=== PATIENT | female | born 1945 | race Caucasian/White ===

== ENCOUNTER 2024-01-31 20:06 | Outpatient (CLI) | payer MEDICARE, OTHER, SELFPAY | END 2024-01-31 20:07 | disposition home or self-care (01) | PROVIDERS: PCP Family Medicine; Visit Provider Internal Medicine | DX: G47.33 Obstructive sleep apnea (adult) (pediatric) (principal); G47.31 Primary central sleep apnea | CPT/HCPCS: 95811 ==

== ENCOUNTER 2025-02-01 09:00 | Outpatient (RCR) | payer MEDICARE, OTHER, SELFPAY | END 2025-04-26 14:40 | disposition home or self-care (01) | PROVIDERS: PCP Family Medicine; Visit Provider Family Medicine | DX: M54.50 Low back pain, unspecified (principal); G89.29 Other chronic pain; Z51.89 Encounter for other specified aftercare | CPT/HCPCS: 97110; 97140; 97161 ==

== ENCOUNTER 2025-03-24 07:21 | Outpatient (CLI) | payer MEDICARE, OTHER, SELFPAY ==
--- OUTSIDE RECORDS SUMMARY | 2025-03-24 08:07 | XMS_ITS | CCD ---
Author Name Interface, [id number] lity Address [place] [address] [facility] Address [place]. [place] [address] Care Team Providers Care Backshoe Person Name Role Phone Interface, [id number] Unavailable Unavail able Reason for Visit Social History
--- OUTSIDE RECORDS SUMMARY | 2025-03-24 08:07 | XMS_ITS | Clinical Summary ---
Author Organization [facility] Address [address] [place] [address] Care Team Providers Care Machine Tracer Name Role Phone Darby Romero MD Unavailable [phone] Alexandra Sams DO Primary Care Provider [phone] [facility] RN Unavailable Madeleine Arredondo MD Unavailable [phone] Luna Duggan NP Unavailable Armando Victor Unavailable [phone] Allergies Active Allergy Reactions Criticality Noted Date Comments Codeine Itching 06/26/2006 Hydrocodone Bitartrate Itching,Rash Low 05/19/2014 Warfarin Rash 05/22/2023 Medications latanoprost (XALATAN) 0.005 % ophthalmic solution 02/24/20 23 Active ascorbic acid, vitamin C, (Vitamin C) 500 mg tablet Take 500 mg by mouth once daily. Active calcium carbonate (CALTRATE) 600 mg calcium (1,500 mg) tabletIndications :Osteopenia of multiple sites Take 2 Tablets (1,200 mg) by mouth once daily with a meal. 2 Tablet 07/07/20 23 Active cholecalciferol (Vitamin D-3) 2,000 unit capsuleIndication s:Osteopenia of multiple sites Take 1 Capsule (2,000 units) by mouth once daily. 0 07/07/20 23 Active multivitamin (MVI) tabletIndications :Medication management Take 1 Tablet by mouth once daily. 0 07/07/20 23 Active CPAPIndications:O SA (obstructive sleep apnea) Resmed CPAP machine for home use at pressure 13 cmw, CPAP mask- mask of choice, fit to comfort one per 3 months; cushions 1 per month 1 Each 03/07/20 24 Active amoxicillin (AMOXIL) 500 mg tabletIndications :Need for prophylactic antibiotic TAKE 4 TABLETS(200 0 MG) BY MOUTH 1 TIME FOR 1 DOSE 4 Tablet 03/25/20 24 Active fluticasone (50 mcg per actuation) nasal solution (FLONASE)Indicati ons:PND (post-nasal drip) Inhale 2 Sprays into affected nostril(s) once daily. 16 g 5 05/10/20 24 Active Magnesium 200 mg tab Take 600 mg by mouth once daily. Active rosuvastatin (CRESTOR) 20 mg tabletIndications :Type 2 diabetes mellitus with retinopathy of both eyes, without long-term current use of insulin, macular edema presence unspecified, unspecified retinopathy severity (HC) Take 1 Tablet (20 mg) by mouth at bedtime. 90 Tablet 3 06/01/20 24 Active celecoxib (CELEBREX) 100 mg capsuleIndication s:Osteoarthritis of multiple joints, unspecified osteoarthritis type Take 1 Capsule (100 mg) by mouth two times daily with meals. 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 90 Tablet 3 12/24/19 25 Active zolpidem 5 mg tabletIndications :Primary insomnia Take 1 Tablet (5 mg) by mouth at bedtime if needed for Sleep. 15 Tablet 12/24/19 25 Active letrozole 2.5 mg tabletIndications :Malignant neoplasm of right female breast, unspecified estrogen receptor status, unspecified site of breast (HC) Take 1 Tablet (2.5 mg) by mouth once daily. 90 Tablet 3 01/07/20 25 Active glimepiride 4 mg tabletIndications :Type 2 diabetes mellitus with retinopathy of both eyes, without long-term current use of insulin, macular edema presence unspecified, unspecified retinopathy severity (HC) TAKE 1 TABLET(4 MG) BY MOUTH DAILY WITH A MEAL 90 Tablet 01/21/20 25 Active pantoprazole 40 mg delayed-release tabletIndications :Chronic GERD TAKE 1 TABLET(40 MG) BY MOUTH DAILY BEFORE A MEAL 90 Tablet 2 02/03/20 25 Active metFORMIN 1,000 mg tabletIndications :Type 2 diabetes mellitus with retinopathy of both eyes, without long-term current use of insulin, macular edema presence unspecified, unspecified retinopathy severity (HC) Take 1 Tablet (1,000 mg) by mouth two times daily with meals. 120 Tablet 02/22/20 25 Active metoprolol succinate 50 mg sustained-release tabletIndications :Cardiomyopathy, unspecified type (HC) Take 1 Tablet (50 mg) by mouth once daily in the morning. 90 Tablet 02/22/20 25 Active escitalopram oxalate 20 mg tabletIndications :Generalized anxiety disorder Take 1 Tablet (20 mg) by mouth once daily in the morning. 90 Tablet 02/22/20 25 Active montelukast 10 mg tabletIndications :Seasonal allergies TAKE 1 TABLET(10 MG) BY MOUTH AT BEDTIME 90 Tablet 2 02/22/20 25 Active spironolactone 25 mg tabletIndications :Cardiomyopathy, unspecified type (HC) Take 1 Tablet (25 mg) by mouth once daily in the morning. 90 Tablet 02/22/20 25 Active traMADoL 50 mg tabletIndications :Chronic bilateral low back pain without sciatica Use every 8 hours as needed for severe pain, no more than 2 tablets in one day 30 Tablet 03/07/20 25 Active busPIRone 10 mg tabletIndications :Generalized anxiety disorder TAKE 1 TABLET(10 MG) BY MOUTH THREE TIMES DAILY 270 Tablet 1 03/22/20 25 Active busPIRone (BUSPAR) 10 mg tabletIndications :Generalized anxiety disorder Take 1 Tablet (10 mg) by mouth three times daily. 270 Tablet 3 03/03/20 24 025 Discontinued traMADoL 50 mg tabletIndications :Chronic bilateral low back pain without sciatica Daily as needed for severe pain 15 Tablet 12/24/19 25 025 Discontinued(R eorder (E-cancel not sent)) Active Problems Problem Noted Date Diagnosed Date Other specified disorders of bone density and structure, unspecified site 06/28/2024 Osteopenia of multiple sites 12/21/2023 Overview (12/21/2023): Takes calcium, Vitamin D Due for repeat DEXA Jul 2024 Chronic systolic heart failure 12/02/2023 Type 2 diabetes mellitus wit h proliferative retinopathy without macular edema, without long-term current use of insulin, unspecified laterality 12/02/2023 Major depressive disorder, recurrent, moderate 0 12/02/2023 Malignant neoplasm of right female breast 2022 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, without long-term current use of insulin 05/22/2023 Hx of sinus bradycardia 05/22/2023 Assessment & Plan (05/22/2023 4:51 PM CDT): Pacer and ICD placed Cardiomyopathy 05/22/2023 Chronic GERD 05/22/2023 Seasonal allergies 05/22/2023 Generalized anxiety disorder 05/22/2023 Psychophysiological insomnia 05/22/2023 Nonrheumatic aortic valve stenosis 05/22/2023 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 05/22/2023 ICD (implantable cardioverter-defibrillator) in place 05/22/2023 Cardiac resynchronization th erapy pacemaker (RADIO OPERATOR GROUND-P) in place 05/22/2023 Depression, recurrent 05/22/2023 Encounters Date Type Department Care Team Description 03/20/2025 Refill [facility] [address] [place] [address] Alexandra Sams Salome, DO Refill Request (Buspirone) 03/07/2025 11:00 AM CDT Office Visit [facility] [address] [place] [address] Alexandra Sams Salome, DO Back Pain (6wk PT no improvement, CT completed scheduled for injections.) 03/07/2025 Travel 03/03/2025 Transcribe Orders [facility] [address] [place] [address] Pradip Titus MD 02/20/2025 Refill [facility] [address] [place] [address] Sir Samsi Salome, DO Refill Request (Metformin, Metoprolol Succinate, Escitalopram Oxalate, Montelukast, Spironolactone) 02/15/2025 Telephone [facility] [address] [place] [address] Shaqra, Alexandra Salome, DO Questions (imaginings) 02/03/2025 Telephone [facility] [address] [place] [address] Estuardoqra, Alexandra Salome, DO FYI 01/31/2025 Refill [facility] [address] [place] [address] Estuardoqra Alexandra Salome, DO Refill Request (Pantoprazole) 01/19/2025 Refill [facility] [address] [place] [address] Estuardoqra, Alexandra Salome, DO Refill Request (Glimepiride) 01/10/2025 Telephone [facility] [address] [place] [address] Luna Duggan, FIBERGLASS BOAT MAKER Appointment 01/06/2025 9:15 AM CDT Office Visit [facility] [address] [place] [phone] Luna Duggan, FIBERGLASS BOAT MAKER Follow Up 01/06/2025 8:40 AM CDT - 01/06/2025 11:59 PM CDT Hospital Encounter [facility] [address] [place] [address] Other specified disorders of bone density and structure, unspecified site (Primary Dx); Malignant neoplasm of right breast in female, estrogen receptor positive, unspecified site of breast (HC) 01/06/2025 Telephone [facility] [address] [place] [address] Estuardoqra Alexandra Salome, DO Medication Management (SITagliptin phosphate 50 mg tablet) 01/06/2025 Travel 01/03/2025 Hospital/[facility] Telephone Encounter [address] [address] Elana Narayanan RN Pre Procedure 12/23/2024 10:35 AM CDT Office Visit [facility] [address] [place] [address] Estuardoqra, Alexandra Salome, DO Diabetes (3 month check ); Back Pain (Level 3 pain, wanting medication advise) 12/23/2024 Travel from Last 3 Months Immunizations Immunization Administration Dates Next Due COVID-19 VACCINE COMIRNATY (PFIZER-BIONTECH 30MCG/0.3ML) 12YO+ PFS 07/09/2023 COVID-19 VACCINE SPIKEVAX (M ODERNA 50MCG/0.5ML) 12YO+ PFS 08/12/2024 COVID-19 vaccine (Shake-Bio NTech 30mcg/0.3mL) 12YO+ BIVALENT PF, MDV 09/05/2022 COVID-19 vaccine (Pfizer-Bio NTech 30mcg/0.3mL) 12YO+ DARIO-SUCROSE PF, MDV 09/12/2022 COVID-19 vaccine (Shake-Bio NTech 30mcg/0.3mL) PF, MDV 04/04/2022,01/08/2021,12/18/2020 Hepatitis B (Adult) 05/24/2020,11/17/2019,2018 Influenza Virus, Unspecified 06/14/2022, 07/05/2016,07/18/2013,07/16,06/05/2011 Influenza, High-dose Inactivated 06/27/2021,11/2016,07/18/2015 Influenza, IIV3 (Age >=3 years) 08/21/20 06,09/23/2005,09/20/2004,09/07,09/26/2002 Influenza, Inactivated AIIV4 (Age 65+ Years) Preserv Free 07/07/2023 Influenza, Inactivated IIV3 (Age 65+ Years) Preserv Free 08/12/2024 Pneumococcal Poly,23-Valent (Pneumovax) 10/05/2009 Pneumococcal conj 13-Valent (Prevnar 13) 07/02/2016 RSV, Recombinant ADJ Reconst ituted (Arexvy 120MCG/0.5mL) 07/09/2023 TD, UNSPECIFIED 10/05/2009 Td (Age >=7 Years) 09/12/2022 Tdap 06/23/2006 Zoster (Shingrix-RZV, recombinant) 08/02/2019, Zoster (Zostavax-ZVL, live) 10/05/2009 Family History Medical History Relation Name Comments Stroke Father Stroke Mother Cancer Sister Neuroendocrine Diabetes Sister Cancer-breast No Family History Relation Name Status Comments Father Mother Sister Social History Tobacco Use Types Packs/Day Years Used Date Smoking Tobacco: Never Smokeless Tobacco: Never Tobacco Cessation:Counseling Given: Yes Alcohol Use Standard Drinks/Week Comments Yes 0 (1 standard drink = 0.6 oz pure alcohol) One drink every couple of weeks PHQ-2 Answer Date Recorded PHQ-2 TOTAL SCORE 0 03/03/2024 Social Connections Answer Date Recorded Do you often feel lonely or isolated from those around you? 0 05/30/2024 Financial Resource Strain Answer Date R ecorded Difficulty of Paying Living Expenses 3 05/30/2024 Difficulty of Paying Living Expenses Not on file 05/30/2024 Food Insecurity Answer Date Recorded Do you worry your food will run out before you are able to buy more? 1 05/30/2024 Transportation Needs Answer Date Record ed Does lack of transportation keep you from medica l appointments? 1 05/30/2024 Does lack of transportation keep you from work, meetings or getting things that you need? 1 05/30/2024 Housing Stability Answer Date Recorded What is your housing situation today? 1 05/30/2024 Utilities Answer Date Recorded Do you have trouble paying f or utilities (for example, heat, electricity, water, phone)? 1 05/30/2024 Comments No Sex and Gender Information Value Date Recorded Sex Assigned at Not on file Legal Sex Female 9:48 AM CDT Gender Identity Not on file Sexual Orientation Not on file Obstetrics History Last Filed Vital Signs Vital Sign Reading Time Taken Comments Blood Pressure 102/61 03/07/2025 11:14 AM CDT Pulse 74 03/07/2025 11:14 AM CDT Temperature 35.9 C (96.7 F) 01/06/2025 9:33 AM CDT Respiratory Rate 18 01/06/2025 9:33 AM CDT Oxygen Saturation 98% 03/07/2025 11:14 AM CDT Inhaled Oxygen Concentration - - Weight 71 kg (156 lb 8 oz) 03/07/2025 11:14 AM C DT Height 160 cm (5' 2.99) 09/21/2024 1:04 PM COMPUTER SYSTEMS ENGINEER Body Mass Index 27.73 09/21/2024 1:04 PM COMPUTER SYSTEMS ENGINEER Plan of Treatment Upcoming Encounters Date Type Department Care Team (Late st Contact Info) Description 03/29/2025 12:30 PM CDT Office Visit [facility] [address] [place] [address] LatrellSirdougie Mcmahon, DO [address] [place] [address] 05/30/2025 3:00 PM CDT Office Visit [facility] [address] [facility] [place] [phone] Nino Combs MD [address] [facility] [address] [place] [address] 06/26/2025 10:00 AM CDT Ancillary Procedure [facility] [address] [place] [address] 07/14/2025 10:15 AM CDT Appointment [facility] [address] [place] [address] 07/14/2025 11:15 AM CDT Office Visit [facility] [address] [place] [phone] Luna Duggan, FIBERGLASS BOAT MAKER [address] [place] [address] 07/14/2025 11:45 AM CDT Appointment [facility] [address] [place] [address] Health Maintenance Due Date Last Done Comments Medicare Wellness for age 65+ 12/21/2024 12/21/2023 COVID-19 vaccine series (7 - Pfizer risk 2023- season) 2025 08/12/2024, 07/09/2023, 09/12/2022, Additional history exists Depression screening for age 12+ 03/03/2025 03/03/2024, 12/25/2023, 12/21/2023, Additional history exists BMI (ht and wt on same day) for age 18+ 09/21/2025 09/21/2024, 06/14/2024, 03/07/2024, Additional history exists Tetanus booster 09/12/2032 09/12/2022, 10/2009, 06/23/2006 Tdap Completed 06/23/2006 Pneumococcal series for age 50+ Completed 6, 10/05/2009 Zoster (shingles) series for age 50+ Completed 08/02/2019, 06/03/2019, 10/05/2009 Hepatitis B series for 19+ Completed 05/24, 11/17/2019, 06/24/2019 RSV vaccine for adults or Completed 07/09/2023 DEXA/DXA scan for age 65+ Completed 2023, [facility]05[facility]20[facility] Influenza Vaccine Completed 08/12/2024, , 06/14/2022, Additional history exists Medical Devices Implanted Type Area Battery Plate Assembler Device Identifier Shelf Expiration Date Model / Serial / Lot Lens Intraocular 18.5 Wf Diopter [id number] - [id number] Implanted:Qty: 1 on 06/29/2006 at [facility] Right: Eye [employer] [id number]. [id number]# / [id number] / Procedures Procedure Name Priority Date/Time Associated Diagnosis Comments AMB EPIDURAL STEROID INJECTION Routine 03/24/2025 7:57 AM CDT Low back pain CREATININE Today 01/06/2025 8:49 AM CDT Malignant neoplasm of right breast in female, estrogen receptor positive, unspecified site of breast (HC) Other specified disorders of bone density and structure, unspecified site CALCIUM Today 01/06/2025 8:49 AM CDT Malignant neoplasm of right breast in female, estrogen receptor positive, unspecified site of breast (HC) Other specified disorders of bone density and structure, unspecified site HEMOGLOBIN A1C MONITORING (POCT) Routine 12/23/2024 10:28 AM CDT 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, without long-term current use of insulin, unspecified laterality (HC) Type 2 diabetes mellitus with retinopathy of both eyes, without long-term current use of insulin, macular edema presence unspecified, unspecified retinopathy severity (HC) Type 2 diabetes mellitus without complication, without long-term current use of insulin (HC) XR DXA BONE DENSITY PERIPHERAL Routine 06/13/2024 10:41 AM CDT Malignant neoplasm of right female breast, unspecified estrogen receptor status, unspecified site of breast (HC) Osteopenia, unspecified location Aromatase inhibitor use from Last 3 Months or Most Recently Relevant to Health Maintenance Results * (ABNORMAL) CREATININE (01/06/2025 8:49 AM CDT) [facility] eGFR 57(L) >90 mL/min/1.7 3m2 01/06/2025 9:07 AM CDT [facility] Comment:As of 2021, eG FR is calculated by the CKD-EPI creatinine equation without race adjustment. eGFR can be influenced by muscle mass, exercise, and diet. The reported eGFR is an estimation only and is only applicable if the renal function is stable. CREATININE 1.00(H) 0.50 - 0.90 mg/dL 01/06/2025 9:07 AM CDT [facility] Blood BLOOD SPECIMEN / Unknown Venipuncture / Unknown 01/06/2025 8:49 AM CDT 01/06/2025 8:49 AM CDT us Madeleine Arredondo MD CHEMISTRY Final Resu lt [facility] [address] [place] [address] * CALCIUM (01/06/2025 8:49 AM CDT) Pathologist [facility] CALCIUM 9.9 8.8 - 10.4 mg/dL 01/06/2025 9:07 AM CDT [facility] Comment: Reference ranges for this test were updated on 08/09/2024 to reflect our healthy population more accurately. Reference range changes are not retroactively applied to results, but previous results using the same methodology can be interpreted in the context of the new reference range. Blood BLOOD SPECIMEN / Unknown Venipuncture / Unknown 01/06/2025 8:49 AM CDT 01/06/2025 8:49 AM CDT Madeleine Arredondo MD CHEMISTRY Final Resu lt Performing Organization Address City/[facility]/ZIP Co de Phone Number [facility] [address] [place] [address] * (ABNORMAL) POCT Hemoglobin A1C Monitoring (12/23/2024 10:28 AM CDT) POC HEMOGLOBIN A1C 8.5(H) <6.0 % OF TOTAL HGB [facility] Comment: Any point of care results exhibiting inconsistency with the patient's clinical status should be repeated using a different testing method. Blood BLOOD SPECIMEN / Unknown 12/23/2024 10:28 AM CDT 12/23/2024 10:28 AM CDT Alexandra Sams DO CHEMISTRY Final Result Performing Organization Address [facility] Co de Phone Number [facility] [address] [place] [address], [facility] [address] [place] [address] * (ABNORMAL) XR DXA BONE DENSITY PERIPHERAL (06/13/2024 10:41 AM CDT) Anatomical Region Laterality Modality ARMS Other Impressions 06/14/2024 12:39 PM CDT Osteopenia. RECOMMENDATIONS: The National Osteoporosis Foundation recommends pharmacologic treatment for patients with T-scores of -2.5 or less, patients with prior history of fragility fractures, or patients with 10-year probability of greater than 3% at hips or greater than 20% of suffering major osteoporotic fractures. Recommend continued optimization of calcium and vitamin D intake through dietary means and/or supplementation and regular exercise. Repeat scan recommended in 3-5 years. Mihaela Mora PA-C [facility] 06/14/2024 Narrative 06/14/2024 12:39 PM CDT For Patients: Results are automatically released to your iLive (Sky[employer]) account once available, in compliance with federal regulations. This means that you may see your results before your provider has had a chance to review them. Please allow 2-3 business days for your provider to comment on the results. XR DXA Bone Mineral Density (BMD) EXAM LOCATION: [address] [address] PATIENT NAME: Lary France DATE OF : 1945 EXAM DATE: 06/13/2024 REQUESTING PROVIDER: Luna Duggan NP GENDER AT : female HEIGHT: 5' 2.99 (03/07/2024) WEIGHT: 157 lb 14.4 oz (06/02/2024) MENOPAUSAL STATUS: Postmenopausal RACE/ETHNICITY: Patient Declined White RISK FACTORS: Aromatase Inhibitors (Arimidex, etc.), Cancer Treatment, Diabetes Type 1, Family History of Osteoporosis, and White Race CURRENT MEDICATION FOR BONE LOSS: NONE INDICATION: Aromatase Inhibitor Use COMPARISON DATE(S): None DXA scans are compared to prior studies for a patient only when the two (or more) studies were performed on the same scanner. It is not possible to compare data generated on one scanner to data from another because there are not standards in DXA equipment. This applies even if the two scanners are made by the same device engineer. PROCEDURE: Dual-energy x-ray absorptiometry performed with routine technique. Reporting is completed in the form of a T-score. The T-score represents the standard deviation from peak bone mass based on young healthy adult. A Z-score is used for diagnosis in premenopausal women, and for men under the age of 50. FINDINGS: RESULT LUMBAR SPINE L1-L2(L3&L4) BMD: 1.896 g/cm2 T-Score: + 5.9 Z-Score: + 7.6 Change from prior: None RESULT FOREARM Right Forearm distal radius BMD: 0.729 g/cm2 T-Score: - 1.7 Z-Score: + 1.1 Change from prior: None RESULT FOREARM Left Forearm distal radius BMD: 0.771 g/cm2 T-Score: - 1.2 Z-Score: + 1.5 Change from prior: None WHO criteria: Normal: T-score at or above -1 SD Osteopenia: T-score between -1.1 and -2.4 SD Osteoporosis: T-score at or below -2.5 SD Luna Duggan NP DEXA Final Result from Last 3 Months or Most Recently Relevant to Health Maintenance Insurance MEDICARE PB ONLY [facility] MEDICARE PART B HB ONLY MEDICARE PART A HB ONLY Advance Directives * Full Code (Latest Code Status on File) Date Activated Date Inactivated Comments 10/14/2006 6:21 AM 10/14/2006 11:54 AM * Full Code Date Activated Date Inactivated Comments 09/03/2006 9:44 AM 09/03/2006 2:05 PM * Full Code Date Activated Date Inactivated Comments 09/03/2006 8:42 AM 09/03/2006 9:44 AM * Full Code Date Activated Date Inactivated Comments 06/29/2006 6:33 AM 06/29/2006 11:57 AM Care Teams Machine Tracer Relationship Specialty Start Date End Date Alexandra Sams DO [address] [place] [address] PCP - General Family Practice 05/22/23 Darby Romero MD [address] [place] [address] 04/02/23 Ninoska Nguyen RN [address] [place] [address] Nurse Navigator - Oncology Registered Nurse 05/27/23 Madeleine Arredondo MD [address] [place] [address] Medical Oncologist Oncology 06/23/23 Luna Duggan, FIBERGLASS BOAT MAKER [address] [place] [address] Nurse Practitioner Oncology 06/23/23 [place], Armando Botello LGSW [address] [place] [address] Edge Cutting Machine Operator Oncology 06/23/23
--- OUTSIDE RECORDS SUMMARY | 2025-03-25 00:21 | XMS_ITS | CCD ---
Author Name Interface, [id number] lity Address [place] [address] [facility] On[facility] Address More breakthroughs[place] [address] Care Team Providers Care Caddy/Caddie Supervisor Name Role Phone Interface, [id number] Unavailable Unavail able Reason for Visit Social History
--- OUTSIDE RECORDS SUMMARY | 2025-03-25 00:21 | XMS_ITS | CCD ---
Author Name Interface, [id number] lity Address [place] [address] [facility] On[facility] Address [place] [address] Care Team Providers Care Cuprous Chloride Helper Name Role Phone Interface, [id number] Unavailable Unavail able Reason for Visit Social History
== END 2025-03-24 07:22 | disposition home or self-care (01) ==
LOC: INJ CL 07:23
PROVIDERS: PCP Family Medicine; Visit Provider Family Medicine
DX: M54.16 Radiculopathy, lumbar region (principal); M51.369 Other intervertebral disc degeneration, lumbar region without mention of lumbar back pain or lower extremity pain
CPT/HCPCS: 64483; J1100; Q9966

== ENCOUNTER 2025-05-02 10:48 | Outpatient (CLI) | payer MEDICARE, OTHER, SELFPAY | END 2025-05-02 10:49 | disposition home or self-care (01) | LOC: INJ CL 10:48 | PROVIDERS: PCP Family Medicine; Visit Provider Family Medicine | DX: M54.16 Radiculopathy, lumbar region (principal); M51.369 Other intervertebral disc degeneration, lumbar region without mention of lumbar back pain or lower extremity pain | CPT/HCPCS: 64483; J1100; Q9966 ==

== ENCOUNTER 2025-06-20 09:59 | Outpatient (CLI) | payer MEDICARE, OTHER, SELFPAY | END 2025-06-20 10:00 | disposition home or self-care (01) | LOC: INJ CL 10:00 | PROVIDERS: PCP Family Medicine; Visit Provider Family Medicine | DX: M54.16 Radiculopathy, lumbar region (principal); M51.369 Other intervertebral disc degeneration, lumbar region without mention of lumbar back pain or lower extremity pain | CPT/HCPCS: 64483; J1100; Q9966 ==

== ENCOUNTER 2025-07-20 13:56 | Emergency (ER) | payer MEDICARE, OTHER, SELFPAY ==
[2025-07-20] VITALS (27 sets, daily range): BP systolic 87–133; BP diastolic 43–77; PULSE 69–79; RESP 16; TEMP 36.4; O2SAT 90–98
--- OUTSIDE RECORDS SUMMARY | 2025-07-20 13:59 | XMS_ITS | CCD ---
Author Name Interface, [address] Address More breakthroughs. More victories. [place] [id number] [facility] Address More breakthrough[place] [address] Reason for Visit Social History Date Name Value 06/18/2022 Sex Female
--- OUTSIDE RECORDS SUMMARY | 2025-07-20 14:00 | XMS_ITS | Clinical Summary ---
Author Organization [facility] Address [address] [place] [address] Care Team Providers Care Risk Management Director Name Role Phone Darby Romero MD Unavailable [phone] Alexandra Sams DO Primary Care Provider [phone] [facility] Unavailable Madeleine Arredondo MD Unavailable [phone] Luna Duggan OPTICAL ENGINEER Unavailable Armando Victor Unavailable Unavailable Ashley Knox PharmD Unavailable [phone] Allergies Active Allergy Reactions Criticality Noted Date Comments Codeine Itching 06/26/2006 Hydrocodone Bitartrate Itching,Rash Low 05/19/2014 Warfarin Rash 05/22/2023 Medications latanoprost (XALATAN) 0.005 % ophthalmic solution 023 Active ascorbic acid, vitamin C, (Vitamin C) 500 mg tablet Take 500 mg by mouth once daily. Active calcium carbonate (CALTRATE) 600 mg calcium (1,500 mg) tabletIndication s:Osteopenia of multiple sites Take 2 Tablets (1,200 mg) by mouth once daily with a meal. 2 Tablet 023 Active cholecalciferol (Vitamin D-3) 2,000 unit capsuleIndicatio ns:Osteopenia of multiple sites Take 1 Capsule (2,000 units) by mouth once daily. 0 023 Active multivitamin (MVI) tabletIndication s:Medication management Take 1 Tablet by mouth once daily. 0 023 Active CPAPIndications: MARLYS (obstructive sleep apnea) Resmed CPAP machine for home use at pressure 13 cmw, CPAP mask- mask of choice, fit to comfort one per 3 months; cushions 1 per month 1 Each 024 Active fluticasone (50 mcg per actuation) nasal solution (FLONASE)Indicat ions:PND (post-nasal drip) Inhale 2 Sprays into affected nostril(s) once daily. 16 g 5 024 Active Magnesium 200 mg tab Take 600 mg by mouth once daily. Active celecoxib (CELEBREX) 100 mg capsuleIndicatio ns:Osteoarthriti s of multiple joints, unspecified osteoarthritis type Take 1 Capsule (100 mg) by mouth two times daily with meals. 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 90 Tablet 3 025 Active letrozole 2.5 mg tabletIndication s:Malignant neoplasm of right female breast, unspecified estrogen receptor status, unspecified site of breast (HC) Take 1 Tablet (2.5 mg) by mouth once daily. 90 Tablet 3 025 Active pantoprazole 40 mg delayed-release tabletIndication s:Chronic GERD TAKE 1 TABLET(40 MG) BY MOUTH DAILY BEFORE A MEAL 90 Tablet 2 025 Active montelukast 10 mg tabletIndication s:Seasonal allergies TAKE 1 TABLET(10 MG) BY MOUTH AT BEDTIME 90 Tablet 2 025 Active busPIRone 10 mg tabletIndication s:Generalized anxiety disorder TAKE 1 TABLET(10 MG) BY MOUTH THREE TIMES DAILY 270 Tablet 1 025 Active metFORMIN 1,000 mg tabletIndication s:Type 2 diabetes mellitus with retinopathy of both eyes, without long-term current use of insulin, macular edema presence unspecified, unspecified retinopathy severity (HC) Take 1 Tablet (1,000 mg) by mouth two times daily with meals. 180 Tablet 3 025 Active rosuvastatin 20 mg tabletIndication s:Type 2 diabetes mellitus with retinopathy of both eyes, without long-term current use of insulin, macular edema presence unspecified, unspecified retinopathy severity (HC) Take 1 Tablet (20 mg) by mouth at bedtime. 90 Tablet 3 Active escitalopram oxalate 20 mg tabletIndication s:Generalized anxiety disorder Take 1 Tablet (20 mg) by mouth once daily in the morning. 90 Tablet 3 Active spironolactone 25 mg tabletIndication s:Cardiomyopathy , unspecified type (HC) Take 1 Tablet (25 mg) by mouth once daily in the morning. 90 Tablet 3 Active metoprolol succinate 50 mg sustained-releas e tabletIndication s:Cardiomyopathy , unspecified type (HC) Take 1 Tablet (50 mg) by mouth once daily in the morning. 90 Tablet 3 Active glimepiride 4 mg tabletIndication s:Type 2 diabetes mellitus with retinopathy of both eyes, without long-term current use of insulin, macular edema presence unspecified, unspecified retinopathy severity (HC) Take 1 Tablet (4 mg) by mouth once daily with a meal. 90 Tablet 3 Active traMADoL (ULTRAM) 50 mg tabletIndication s:Chronic bilateral low back pain without sciatica TAKE 1 TABLET BY MOUTH EVERY 8 HOURS NEEDED FOR SEVERE PAIN, NO MORE THAN 2 TABLETS IN ONE DAY 30 Tablet Active gabapentin (NEURONTIN) 100 mg capsuleIndicatio ns:Chronic bilateral low back pain without sciatica TAKE 2 CAPSULES BY MOUTH IN THE AM, 1 CAPSULE AT NOON AND 2 CAPSULES AT BEDTIME 450 Capsule 3 Active Additional Information Patient taking differently: TAKE 2 CAPSULES BY MOUTH IN THE AM, 1 CAPSULE AT NOON AND 2 CAPSULES AT BEDTIMEReports taking 2 in the AM, 2 at noon, and 3 at bedtime, Reported on 07/14/2025 zolpidem (AMBIEN) 5 mg tabletIndication s:Primary insomnia Take 1 Tablet (5 mg) by mouth at bedtime if needed for Sleep. 15 Tablet Active amoxicillin 500 mg tablet For dental procedures Active zolpidem 5 mg tabletIndication s:Primary insomnia Take 1 Tablet (5 mg) by mouth at bedtime if needed for Sleep. 15 Tablet 025 2024 Discontinued(R eorder (E-cancel not sent)) gabapentin (NEURONTIN) 100 mg capsuleIndicatio ns:Chronic bilateral low back pain without sciatica Take 200 mg in the AM, 100 mg at noon, and 200 mg at bedtime. 150 Capsule 025 2024 Discontinued gabapentin (NEURONTIN) 100 mg capsuleIndicatio ns:Chronic bilateral low back pain without sciatica TAKE 2 CAPSULES BY MOUTH IN THE AM, 1 CAPSULE AT NOON AND 2 CAPSULES AT BEDTIME 150 Capsule 025 2024 Discontinued(R eorder (E-cancel not sent)) Active Problems Problem Noted Date Diagnosed Date CKD stage 3a, GFR 45-59 ml/min 04/28/2025 Other specified disorders of bone density and [...] place 05/22/2023 Cardiac resynchronization th erapy pacemaker (CHIPPER FEEDER-P) in place 05/22/2023 Depression, recurrent 05/22/2023 Encounters Date Type Department Care Team Description 07/20/2025 Nurse Triage [facility] [address] [place] [address] Shaqra, Alexandra Salome, DO Dizziness 07/17/2025 Telephone [facility] [address] [place] [phone] Oncology, [facility] Appointment 07/14/2025 11:15 AM CDT Office Visit [facility] [address] [place] [phone] Luna Duggan, OPTICAL ENGINEER Follow Up (Malignant neoplasm of right female breast) 07/14/2025 10:11 AM CDT - 07/14/2025 11:59 PM CDT Hospital Encounter [facility] [address] [place] [address] Luna Duggan, OPTICAL ENGINEER Other specified disorders of bone density and structure, unspecified site (Primary Dx); Malignant neoplasm of right breast in female, estrogen receptor positive, unspecified site of breast (HC) 07/14/2025 10:10 AM CDT Hospital Encounter [facility] [address] [facility] [place] [address] Malignant neoplasm of right breast in female, estrogen receptor positive, unspecified site of breast (HC); Other specified disorders of bone density and structure, unspecified site 07/14/2025 Travel 06/30/2025 12:55 PM CDT Office Visit [facility] [address] [place] [address] Estuardoqra, Alexandra Salome, DO Diabetes (3 month old check) 06/30/2025 Travel 06/29/2025 Orders Only [facility] [address] [facility] [place] [phone] Luna Duggan, OPTICAL ENGINEER <No scans attached> 06/26/2025 10:40 AM CDT Ancillary Procedure [facility] [address] [facility] [place] [address] 06/26/2025 Travel 06/23/2025 Refill [facility] [address] [place] [address] [place] Alexandra Salome, DO Refill Request (Gabapentin) 06/20/2025 10:40 AM CDT Office Visit [facility] [address] [place] [phone] Pradip Titus MD Procedure (Right S1 TFESI) 06/15/2025 Orders Only [facility] Scanner 1 scan: (1-Ord) [facility], 06/15/2025 06/15/2025 Refill [facility] [address] [place] [address] Estuardoqra Alexandra Salome, DO Refill Request (Tramadol) 05/19/2025 Transcribe Orders [facility] [address] [place] [address] Pradip Titus MD 05/03/[address] [address] Sir Samsi Salome, DO Follow Up 05/02/2025 11:20 AM CDT Office Visit [facility] [address] [place] [phone] Pradip Titus MD Procedure (Right L5-S1 and left S1 TFESI) 05/02/2025 Telephone [facility] [address] [place] [address] Sir Samsi Salome, DO Follow Up 05/02/2025 Travel 04/28/2025 1:45 PM CDT Office Visit [facility] [address] [place] [address] L[place] Alexandra Salome, DO Medication Management (2nd set of Cortizone shots 05/02/[address] Giordano. Wants to check on interference with her current meds and the Cortizone shots. Questions on ablation, would be the next step if the injections don't work.) 04/28/2025 E-Consult [address] [address] Jose Fuentes MD 04/28/2025 Travel 04/27/2025 Transcribe Orders [facility] [address] [place] [address] Pradip Titus MD 04/27/2025 Telephone [facility] [address] [place] [address] EstuardojesseniaSir hendrixdougie Mcmahon, DO Questions 04/26/2025 1:30 PM CDT Office Visit [facility] [address] [place] [address] Ben Bullard, DPShlomo Follow Up (Right 2nd toenail removal) 04/26/2025 Travel from Last 3 Months Immunizations Immunization Administration Dates Next Due COVID-19 VACCINE COMIRNATY (PFIZER-BIONTECH 30MCG/0.3ML) 12YO+ PFS 07/09/2023 COVID-19 VACCINE SPIKEVAX (M ODERNA 50MCG/0.5ML) 12YO+ PFS 03/29/2025,08/12/2024 COVID-19 vaccine (Pfizer-Bio NTech 30mcg/0.3mL) 12YO+ BIVALENT PF, MDV 09/05/2022 COVID-19 vaccine (Pfizer-Bio NTech 30mcg/0.3mL) 12YO+ DARIO-SUCROSE PF, MDV 09/12/2022 COVID-19 vaccine (Pfizer-Bio NTech 30mcg/0.3mL) PF, MDV 04/04/2022,01/08/2021,12/18/2020 Hepatitis B (Adult) 05/24/2020,11/17/2019,2018 Influenza Virus, Unspecified 06/14/2022, 07/05/2016,07/18/2013,07/16,06/05/2011 Influenza, High-dose Inactivated 06/27/2021,11/2016,07/18/2015 Influenza, IIV3 (Age >=3 years) 08/21/20 06,09/23/2005,09/20/2004,09/07,09/26/2002 Influenza, IIV4 08/12/2024,,08/21/2006,09/23,09/20/2004,09/07/2003,09/26/2002 Influenza, Inactivated AIIV4 (Age 65+ Years) Preserv Free 07/07/2023 Influenza, Inactivated IIV3 (Age 65+ Years) Preserv Free 06/30/2025,08/12/2024 Pneumococcal Poly,23-Valent (Pneumovax) 10/05/2009 Pneumococcal conj 13-Valent [...] Answer Date Recorded PHQ-2 TOTAL SCORE 0 03/29/2025 Social Connections Answer Date Recorded Do you often feel lonely or isolated from those around you? 0 06/30/2025 Financial Resource Strain Answer Date R ecorded Difficulty of Paying Living Expenses 3 06/30/2025 Difficulty of Paying Living Expenses Not on file 06/30/2025 Food Insecurity Answer Date Recorded Do you worry your food will run out before you are able to buy more? 1 06/30/2025 Transportation Needs Answer Date Record ed Does lack of transportation keep you from medica l appointments? 1 06/30/2025 Does lack of transportation keep you from work, meetings or getting things that you need? 1 06/30/2025 Housing Stability Answer Date Recorded What is your housing situation today? 1 06/30/2025 Utilities Answer Date Recorded Do you have trouble paying f or utilities (for example, heat, electricity, water, phone)? 1 06/30/2025 Comments No Sex and Gender Information Value Date Recorded Sex Assigned at Not on file Legal Sex Female 9:48 AM CDT Gender Identity Not on file Sexual Orientation Not on file Obstetrics History Last Filed Vital Signs Vital Sign Reading Time Taken Comments Blood Pressure 110/54 07/14/2025 12:25 PM CDT Pulse 67 07/14/2025 12:25 PM CDT Temperature 36.4 C (97.5 F) 07/14/2025 11:07 AM CDT Respiratory Rate 17 07/14/2025 12:2 5 PM CDT Oxygen Saturation 97% 07/14/2025 12: 25 PM CDT Inhaled Oxygen Concentration - - Weight 71.6 kg (157 lb 14.4 oz) 025 11:07 AM CDT Height 160 cm (5' 2.99) 03/29/2025 12: 49 PM CDT Body Mass Index 27.98 03/29/2025 12:49 PM CDT Plan of Treatment Upcoming Encounters Date Type Department Care Team (Late st Contact Info) Description 01/15/2026 10:[address] [facility] [address] [place] [address] 01/15/2026 11:30 AM CDT Office Visit [facility] [address] [place] [phone] Madeleine Arredondo MD [address] [place] [address] 01/15/2026 12:00 PM CDT Appointment [facility] [address] [place] [address] Health Maintenance Due Date Last Done Comments COVID-19 vaccine series ( season) 2025 03/29/2025, 08/12/2024, 07/09/2023, Additional history exists BMI (ht and wt on same day) for age 18+ 03/29/2026 03/29/2025, 09/21/2024, 06/14/2024, Additional history exists Depression screening for age 12+ 03/29/2026 03/29/2025, 03/03/2024, 12/25/2023, Additional history exists Medicare Wellness for age 65+ 03/30/2026 03/29/2025, 12/21/2023 Tetanus booster 09/12/2032 09/12/2022, 10/2009, 06/23/2006 Pneumococcal series for age 50+ Completed 6, 10/05/2009 Zoster (shingles) series for age 50+ Completed 08/02/2019, 06/03/2019, 10/05/2009 Hepatitis B series for 19+ Completed 05/24, 11/17/2019, 06/24/2019 RSV vaccine for adults or Completed 07/09/2023 DEXA/DXA scan for age 65+ Completed 2023, 07/05/2022 (Completed outside of [facility]) Influenza Vaccine Completed 06/30/2025, , 08/12/2024, Additional history exists Medical Devices Implanted Type Area Data Typist Device Identifier Shelf Expiration Date Model / Serial / Lot Lens Intraocular 18.5 Wf Diopter [id number] - [id number] Implanted:Qty: 1 on 06/29/2006 at [facility] Right: Eye [employer] [id number]. [id number]# / [id number] / Procedures Procedure Name Priority Date/Time Associated Diagnosis Comments CREATININE Today 07/14/2025 10:20 AM CDT Malignant neoplasm of right breast in female, estrogen receptor positive, unspecified site of breast (HC) Other specified disorders of bone density and structure, unspecified site CALCIUM Today 07/14/2025 10:20 AM CDT Malignant neoplasm of right breast in female, estrogen receptor positive, unspecified site of breast (HC) Other specified disorders of bone density and structure, unspecified site HEMOGLOBIN A1C MONITORING (POCT) Routine 06/30/2025 12:16 PM CDT Type 2 diabetes mellitus without complication, without long-term current use of insulin (HC) XR MAMMO MARLA BILAT SCREEN Routine 06/26/2025 10:53 AM CDT Visit for screening mammogram AMB EPIDURAL STEROID INJECTION Routine 06/20/2025 12:00 AM CDT Lumbar radiculopathy SCAN-EYE EXAM 06/15/2025 12:00 AM CDT AMB EPIDURAL STEROID INJECTION Routine 05/02/2025 12:00 AM CDT Radiculopathy, lumbar region XR DXA BONE DENSITY PERIPHERAL Routine 06/13/2024 10:41 AM CDT Malignant neoplasm of right female breast, unspecified estrogen receptor status, unspecified site of breast (HC) Osteopenia, unspecified location Aromatase inhibitor use from Last 3 Months or Most Recently Relevant to Health Maintenance Results * (ABNORMAL) CREATININE (07/14/2025 10:20 AM CDT) eGFR 60(L) >90 mL/min/1.7 3m2 07/14/2025 10:40 AM CDT [facility] Comment:As of 2021, eG FR is calculated by the CKD-EPI creatinine equation without race adjustment. eGFR can be influenced by muscle mass, exercise, and diet. The reported eGFR is an estimation only and is only applicable if the renal function is stable. CREATININE 0.95(H) 0.50 - 0.90 mg/dL 07/14/2025 10:40 AM CDT [facility] Blood BLOOD SPECIMEN / Unknown Venipuncture / Unknown 07/14/2025 10:20 AM CDT 07/14/2025 10:20 AM CDT us Luna Duggan NP CHEMISTRY Final Result [facility] [address] [place] [address] * CALCIUM (07/14/2025 10:20 AM CDT) CALCIUM 9.8 8.8 - 10.4 mg/dL 07/14/2025 10:40 AM CDT [facility] Comment: Reference ranges for this test were updated on 08/09/2024 to reflect our healthy population more accurately. Reference range changes are not retroactively applied to results, but previous results using the same methodology can be interpreted in the context of the new reference range. Blood BLOOD SPECIMEN / Unknown Venipuncture / Unknown 07/14/2025 10:20 AM CDT 07/14/2025 10:20 AM CDT us Luna Duggan OPTICAL ENGINEER CHEMISTRY Final Result [facility] [address] [place] [address] * (ABNORMAL) HEMOGLOBIN A1C MONITORING (POCT) (06/30/2025 12:16 PM CDT) [facility] POC HEMOGLOBIN A1C 7.8(H) <6.0 % OF TOTAL HGB 06/30/2025 12:36 PM CDT [facility] Comment: Any point of care results exhibiting inconsistency with the patient's clinical status should be repeated using a different testing method. Blood BLOOD SPECIMEN / Unknown [facility] / Unknown 06/30/2025 12:16 PM CDT 06/30/2025 12:16 PM CDT Alexandra Sams DO CHEMISTRY Final Result [facility] [address] [phone], [place] [phone] [facility] [address] [place] [address], [place] [phone] * XR MAMMO MARLA BILAT SCREEN (06/26/2025 10:53 AM CDT) Anatomical Region Laterality Modality BREASTS, Breast Left, Breast Right Bilateral Mammography Impressions 06/28/2025 7:42 AM CDT There is no radiographic evidence for malignancy. Recommend annual mammograms. MAMMOGRAM ASSESSMENT: ACR 2 Benign PATIENTS: You will also receive a letter with your examination results in an easy to read format. If you have questions about your results, please contact your referring provider. Narrative 06/28/2025 7:42 AM CDT For Patients: As a result of the Century Cures Act, medical imaging exams and procedure reports are released immediately into your electronic medical record. You may view this report before your referring provider. If you have questions, please contact your health care provider. XR MAMMO MARLA BILAT SCREEN [[id number]] CLINICAL HISTORY: This is an asymptomatic 80 y.o. patient. INDICATION FOR EXAM: Mammogram Screening. TECHNIQUE: CC and MLO views were obtained. This study was evaluated with the assistance of Computer-Aided Detection. Breast Tomosynthesis was used in interpretation. COMPARISON FILMS: Yes 06/13/24 [facility] 06/09/23 [facility] FINDINGS: There are scattered areas of fibroglandular density. No suspicious masses or microcalcifications. There are post surgical changes of right breast. us Alexandra Salome Sams DO MAMMO Final Result * AMB EPIDURAL STEROID INJECTION (06/20/2025 12:00 AM CDT) Pradip Titus MD NEUROLOGY ORD Final Resu lt * SCAN-EYE EXAM (06/15/2025 12:00 AM CDT) us Scanner OTHER Final Result * AMB EPIDURAL STEROID INJECTION (05/02/2025 12:00 AM CDT) Pradip Titus MD NEUROLOGY ORD Final Resu lt * (ABNORMAL) XR DXA BONE DENSITY PERIPHERAL [...] recommended in 3-5 years. Mihaela Mora PA-C [facility] 06/14/2024 Narrative 06/14/2024 12:39 PM CDT For Patients: Results are automatically released to your [facility] ([employer]) account once available, in compliance with federal regulations. This means that you may see your results before your provider has had a chance to review them. Please allow 2-3 business days for your provider to comment on the results. XR DXA Bone Mineral Density (BMD) EXAM LOCATION: [facility] [address] [facility] [address] PATIENT NAME: Lary France DATE OF : [...] two scanners are made by the same mental hygienist. PROCEDURE: Dual-energy x-ray absorptiometry performed with routine [...] to Health Maintenance Insurance MEDICARE PB ONLY [facility] MEDICARE PART B HB ONLY MEDICARE PART [...] 6:33 AM 06/29/2006 11:57 AM Care Teams Risk Management Director Relationship Specialty Start Date End Date Alexandra Sams DO [address] [place] [id number] PCP - General Family Practice 05/22/23 Darby Romero MD 04/02/23 Ninoska Nguyen, LUKE [address] [place] [address] Nurse Navigator - Oncology Registered Nurse 05/27/23 Madeleine Arredondo MD [address] [place] [address] Medical Oncologist Oncology 06/23/23 Luna Duggan, OPTICAL ENGINEER [address] [place] [address] Nurse Practitioner Oncology 06/23/23 [place], BETSY Duran [address] [place] [address] Manager Background Oncology 06/23/23 Ashley Knox, PharmD [address] [facility] [place] [address] Pharmacology 04/03/25
--- NOTE | 2025-07-20 14:32 | CT_ITS ---
Patient: CARLOS MANUEL MONROY Facility:?[facility] RIS Patient ID:?[id number] Site Patient ID:?[id number]. Site :?[id number] Study:?CT-Neck Angio Angio 95CC ISOVUE 370 NON ACUTE-07/20/2025 3:54:37 PM Ordering Physician:Daphnie Cruz Final Report: DATE: 07/20/2025 CLINICAL HISTORY: Patient with dizziness. TECHNIQUE: Standard helical CT image acquisition through the head and neck was performed after intravenous contrast bolus enhancement. 2D and 3D MIP images for post- processing were performed and interpreted on an independent workstation and 3D images were permanently archived. COMPARISON: CT same day. 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 The origins of the great vessels from the aortic arch are patent. The origin of the right vertebral artery is patent. The origin of the left vertebral artery is patent. The common carotid arteries are patent There is no stenosis at the origin of the right internal carotid artery. There is no stenosis at the origin of the left internal carotid artery. The rest of the cervical segments of the internal carotid arteries are patent up to their intracranial segments. The intracranial segments of the internal carotid arteries are patent. The left vertebral artery is dominant. The cervical segments of the vertebral arteries are patent. The intracranial segments of the left vertebral artery are patent. The middle cerebral arteries are normal without aneurysm or proximal occlusion identified. The anterior cerebral arteries are normal without aneurysm or proximal occlusion identified. The anterior communicating artery is well visualized and appears normal. The basilar artery is normal without aneurysm or occlusion. The posterior cerebral arteries are normal without aneurysm or proximal occlusion. There is normal opacification of major intracranial venous structures. The visualized lung apices are unremarkable The thyroid gland is unremarkable. The soft tissues of the neck are unremarkable. There are degenerative changes in the cervical spine. 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 Patent rest of the cervical and proximal intracranial vasculature. Please note that all CT scans at this facility use dose modulation, iterative reconstruction, and/or weight-based dosing when appropriate to reduce radiation dose to as low as reasonably achievable. Dictated by Rosanna Chase MD @ 07/20/2025 10:10:31 PM (Electronic Signature)
--- NOTE | 2025-07-20 14:32 | CRLHL7_ITS ---
For Patients: As a result of the Century Cures Act, medical imaging exams and procedure reports are released immediately into your electronic medical record. You may view this report before your referring provider. If you have questions, please contact your health care provider. Indication: Dizziness Technique: Volumetric multidetector CT images of the head were obtained without the administration of low osmolar intravenous contrast. Comparison: None available Findings: There is no intra-axial or extra-axial fluid collection. There is no mass effect or midline shift. There is age-related cortical atrophy with mild sulcal widening and ex vacuo dilatation of the lateral ventricles. There are chronic small vessel disease changes in the subcortical and periventricular white matter without lost hawk-white differentiation. The orbits and their contents are grossly within normal limits. The bony calvarium is grossly intact. The paranasal sinuses are clear. The mastoid air cells are well aerated. Impression: Age-related and chronic small-vessel disease changes of the brain without acute intracranial abnormality. Please note that all CT scans at this facility use dose modulation, iterative reconstruction, and/or weight-based dosing when appropriate to reduce radiation dose to as low as reasonably achievable. Dictated by Sabino Leal MD @ 07/20/2025 4:13:00 PM (Electronically Signed)
--- NOTE | 2025-07-20 14:32 | CT_ITS ---
Patient: CARLOS MANUEL MONROY Facility:?[facility] RIS Patient ID:?[id number] Site Patient ID:?[id number] Site :?[id number] Study:?CT-Head Angio 95CC ISOVUE 370 NON ACUTE-07/20/2025 3:53:40 PM Ordering Physician:Daphnie Cruz Final Report: DATE: 07/20/2025 CLINICAL HISTORY: Patient with dizziness. TECHNIQUE: Standard helical CT image acquisition through the head and neck was performed after intravenous contrast bolus enhancement. 2D and 3D MIP images for post- processing were performed and interpreted on an independent workstation and 3D images were permanently archived. COMPARISON: CT same day. 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 The origins of the great vessels from the aortic arch are patent. The origin of the right vertebral artery is patent. The origin of the left vertebral artery is patent. The common carotid arteries are patent There is no stenosis at the origin of the right internal carotid artery. There is no stenosis at the origin of the left internal carotid artery. The rest of the cervical segments of the internal carotid arteries are patent up to their intracranial segments. The intracranial segments of the internal carotid arteries are patent. The left vertebral artery is dominant. The cervical segments of the vertebral arteries are patent. The intracranial segments of the left vertebral artery are patent. The middle cerebral arteries are normal without aneurysm or proximal occlusion identified. The anterior cerebral arteries are normal without aneurysm or proximal occlusion identified. The anterior communicating artery is well visualized and appears normal. The basilar artery is normal without aneurysm or occlusion. The posterior cerebral arteries are normal without aneurysm or proximal occlusion. There is normal opacification of major intracranial venous structures. The visualized lung apices are unremarkable The thyroid gland is unremarkable. The soft tissues of the neck are unremarkable. There are degenerative changes in the cervical spine. 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 Patent rest of the cervical and proximal intracranial vasculature. Please note that all CT scans at this facility use dose modulation, iterative reconstruction, and/or weight-based dosing when appropriate to reduce radiation dose to as low as reasonably achievable. Dictated by Rosanna Chase MD @ 07/20/2025 10:09:57 PM (Electronic Signature)
--- OUTSIDE RECORDS SUMMARY | 2025-07-20 14:36 | XMS_ITS | CCD ---
Author Name Interface, [address] Address More breakthroughs. More victories. [place] [id number] [facility] Address [place] breakthroughs[place] [address] Reason for Visit Social History Date Name Value 06/18/2022 Sex Female
--- OUTSIDE RECORDS SUMMARY | 2025-07-20 14:37 | XMS_ITS | CCD ---
Author Name Interface, [address] Address More breakthroughs. More victories. [place] [id number] [facility] Address [place] breakthroughs[place] [address] Reason for Visit Social History Date Name Value 06/18/[birth year]22 Sex Female
--- NOTE | 2025-07-20 14:47 | ED.GENADULT ---
HPI - General Adult General Date Seen: 07/20/25 Chief complaint: Dizziness/Vertigo Stated complaint: dizziness, nausea Time Seen by Provider: 07/20/25 14:19 Source: patient Mode of arrival: ambulatory Limitations: no limitations History of Present Illness HPI narrative: Patient is an 80-year-old female presenting to the emergency department from lightheadedness and dizziness. She states she woke up this morning as soon as she open her eyes she felt very nauseated. She then had to get up to go the bathroom and realized that she is feeling very dizzy and the whole room was spinning. She had a whole onto the wall to get to the bathroom. Symptoms have been persisting since then. Has not noticed any improvement her symptoms other than when she sits still. States when she lays in bed and does not move the symptoms go way. Does note worsening dizziness with head movement. Her friend drove her into the emergency department the patient states she had to hold onto her friend while she walked an as she felt like she was going to pass out. Has never had symptoms like this before. Currently she is laying in bed she states symptoms feel like they are almost completely gone but still ?does not feel right. Denies any weakness, numbness, headache, vision changes, abdominal pain, chest pain, shortness of breath, dysuria. No other concerns noted at this time. No history of previous strokes. Is diabetic. Has not had any hearing changes. Denies any recent viral illnesses. Related Data Home Medications ?Medication ?Instructions ?Recorded ?Confirmed amoxicillin 500 mg capsule 500 mg PO QID 02/02/25 07/20/25 buspirone 10 mg tablet 10 mg PO 3XD 02/02/25 07/20/25 celecoxib 100 mg capsule 100 mg PO BID 02/02/25 07/20/25 escitalopram oxalate 20 mg tablet 20 mg PO DAILY 02/02/25 07/20/25 fluticasone propionate 50 spray intranasal 02/02/25 07/13/25 mcg/actuation nasal spray,suspension glimepiride 4 mg tablet 4 mg PO DAILY 02/02/25 07/20/25 letrozole 2.5 mg tablet mg PO 02/02/25 07/13/25 metformin 1,000 mg tablet 1,000 mg PO BID 02/02/25 07/20/25 metoprolol succinate 50 mg 50 mg PO DAILY 02/02/25 07/20/25 tablet,extended release 24 hr montelukast 10 mg tablet 10 mg PO DAILY 02/02/25 07/20/25 pantoprazole 40 mg tablet,delayed 40 mg PO DAILY 02/02/25 07/20/25 release rosuvastatin 20 mg tablet 20 mg PO QPM 02/02/25 07/20/25 sitagliptin phosphate 50 mg tablet 50 mg PO QDAY 02/02/25 07/20/25 (Januvia) spironolactone 25 mg tablet mg PO 02/02/25 07/13/25 tramadol 50 mg tablet mg PO DAILY PRN severe pain 02/02/25 07/13/25 zolpidem 5 mg tablet 5 mg PO QPM PRN 02/02/25 07/20/25 latanoprost 0.005 % eye drops 1 drp ophthalmic (eye) QPM 07/20/25 07/20/25 Previous Rx's ?Medication ?Instructions ?Recorded gabapentin 100 mg capsule 300 mg (3 x 100 mg) PO TID #270 07/13/25 caps Allergies Allergy/AdvReac Type Severity Reaction Status Date / Time codeine AdvReac itching Verified 07/20/25 15:55 warfarin AdvReac rash Verified 07/20/25 15:55 hydrocodone bitartrate AdvReac Itching Uncoded 07/20/25 15:55 Review of Systems Status of ROS: Reports: 10 or more systems reviewed and unremarkable except as noted in History and below [facility] Medical History Major depressive disorder ?F32.9 - Major depressive disorder, single episode, unspecified (ICD-10) Osteopenia ?M85.80 - Other specified disorders of bone density and structure, unspecified site (ICD-10) Chronic heart failure ?I50.9 - Heart failure, unspecified (ICD-10) Cardiac resynchronization therapy pacemaker (AGILE SCRUM COACH-P) in place ?Z95.0 - Presence of cardiac pacemaker (ICD-10) ICD (implantable cardioverter-defibrillator) in place ?Z95.810 - Presence of automatic (implantable) cardiac defibrillator (ICD-10) Type 2 diabetes mellitus ?E11.9 - Type 2 diabetes mellitus without complications (ICD-10) Osteoarthrosis ?M19.90 - Unspecified osteoarthritis, unspecified site (ICD-10) Esophageal reflux ?K21.9 - Gastro-esophageal reflux disease without esophagitis (ICD-10) Sinus bradycardia ?R00.1 - Bradycardia, unspecified (ICD-10) Psychophysiological insomnia ?F51.04 - Psychophysiologic insomnia (ICD-10) Generalized anxiety disorder ?F41.1 - Generalized anxiety disorder (ICD-10) Seasonal allergies ?J30.2 - Other seasonal allergic rhinitis (ICD-10) Malignant neoplasm of right female breast ?C50.911 - Malignant neoplasm of unspecified site of right female breast (ICD-10) Chronic GERD ?K21.9 - Gastro-esophageal reflux disease without esophagitis (ICD-10) Type 2 diabetes mellitus with retinopathy of both eyes, without long-term current use of insulin ?E11.319 - Type 2 diabetes mellitus with unspecified diabetic retinopathy without macular edema (ICD-10) Diabetic retinopathy of both eyes ?E11.319 - Type 2 diabetes mellitus with unspecified diabetic retinopathy without macular edema (ICD-10) Nonrheumatic aortic (valve) stenosis ?I35.0 - Nonrheumatic aortic (valve) stenosis (ICD-10) Cardiomyopathy (Unknown) ?I42.9 - Cardiomyopathy, unspecified (ICD-10) Surgical History History of right shoulder replacement ?Z96.611 - Presence of right artificial shoulder joint (ICD-10) History of total right knee replacement ?Z96.651 - Presence of right artificial knee joint (ICD-10) H/O arthroscopic knee surgery ?Z98.890 - Other specified postprocedural states (ICD-10) H/O bilateral hip replacements ?Z96.643 - Presence of artificial hip joint, bilateral (ICD-10) H/O dilation and curettage ?Z98.890 - Other specified postprocedural states (ICD-10) History of cholecystectomy ?Z90.49 - Acquired absence of other specified parts of digestive tract (ICD-10) Hx of cataract removal with insertion of prosthetic lens ?Z98.49 - Cataract extraction status, unspecified eye (ICD-10) ?Z96.1 - Presence of intraocular lens (ICD-10) History of carpal tunnel release ?Z98.890 - Other specified postprocedural states (ICD-10) History of lumpectomy of right breast ?Z98.890 - Other specified postprocedural states (ICD-10) History of back surgery ?Z98.890 - Other specified postprocedural states (ICD-10) Exam Narrative: Exam Narrative: Const: Well-nourished, Well-developed, in mild distress but did he appear like she is going to fall over when I sent her on the edge of the bed Eyes: PERRL, no conjunctival injection, and symmetrical lids HENT: Atraumatic external nose and ears. Moist mucous membranes. Neck: Symmetric, trachea midline, No thyromegaly. CVS: RRR, No murmurs or gallops. Peripheral pulses 2+ and equal in all extremities RESP: Unlabored respiratory effort. Clear to auscultation bilaterally. GI: Nontender/Nondistended, No rebound or guarding. MSK:Extremities w/o deformity, Normal Active ROM Skin: Warm, Dry. No rashes or lesions. Neuro: Normal Muscle tone, Cranial nerves 2-12 grossly intact, normal eepg-no-ohoi, normal trtupa-[id number]-cwhr, normal gait, normal strength 5/5 upper lower extremities bilaterally, normal sensation upper and lower extremities bilaterally, normal rapid alternating movements. Psych: Awake, Alert, & Oriented x3. Appropriate mood and affect. Const: Vital Signs, click to edit/add: Vital Signs - 24 hr 07/20/25 14:10 07/20/25 15:12 07/20/25 15:15 Temperature 97.5 F L Pulse Rate 71 70 Pulse Rate [Pulse Oximeter] 72 Pulse Rate [orthos tatic lying] Pulse Rate [orthos tatic sitting] Pulse Rate [orthos tatic standing] Respiratory Rate 16 Blood Pressure Blood Pressure [Ri ght Upper Arm] 121/51 L Blood Pressure [or thostatic lying] Blood Pressure [or thostatic sitting] Blood Pressure [or thostatic standing ] Pulse Oximetry 96 97 96 Oxygen Delivery Me thod Room Air 07/20/25 15:17 07/20/25 15:56 07/20/25 16:03 Temperature Pulse Rate 69 71 Pulse Rate [Pulse Oximeter] Pulse Rate [orthos tatic lying] Pulse Rate [orthos tatic sitting] Pulse Rate [orthos tatic standing] Respiratory Rate Blood Pressure 112/49 L 117/43 L Blood Pressure [Ri ght Upper Arm] Blood Pressure [or thostatic lying] Blood Pressure [or thostatic sitting] Blood Pressure [or thostatic standing ] Pulse Oximetry 92 [facility] 16:17 07/20/25 16:32 07/20/25 16:47 Temperature Pulse Rate Pulse Rate [Pulse Oximeter] Pulse Rate [orthos tatic lying] Pulse Rate [orthos tatic sitting] Pulse Rate [orthos tatic standing] Respiratory Rate Blood Pressure 126/52 L 107/58 L 94/68 Blood Pressure [Ri ght Upper Arm] Blood Pressure [or thostatic lying] Blood Pressure [or thostatic sitting] Blood Pressure [or thostatic standing ] Pulse Oximetry [facility] 07/[facility]/25 17:00 07/20/25 17:02 07/20/25 17:04 Temperature Pulse Rate 71 Pulse Rate [Pulse Oximeter] Pulse Rate [orthos tatic lying] Pulse Rate [orthos tatic sitting] Pulse Rate [orthos tatic standing] Respiratory Rate Blood Pressure 87/76 L 93/57 L Blood Pressure [Ri ght Upper Arm] Blood Pressure [or thostatic lying] Blood Pressure [or thostatic sitting] Blood Pressure [or thostatic standing ] Pulse Oximetry 96 [facility] 07/20/25 17:05 07/20/25 17:06 07/20/25 17:07 Temperature Pulse Rate 74 75 Pulse Rate [Pulse Oximeter] Pulse Rate [orthos tatic lying] 72 Pulse Rate [orthos tatic sitting] 74 Pulse Rate [orthos tatic standing] 76 Respiratory Rate Blood Pressure 117/64 118/60 Blood Pressure [Ri ght Upper Arm] Blood Pressure [or thostatic lying] 117/64 Blood Pressure [or thostatic sitting] 118/60 Blood Pressure [or thostatic standing ] 127/62 Pulse Oximetry 98 96 [facility] 07/[facility] 17:08 07/20/25 17:09 07/20/25 17:15 Temperature Pulse Rate 78 79 74 Pulse Rate [Pulse Oximeter] Pulse Rate [orthos tatic lying] Pulse Rate [orthos tatic sitting] Pulse Rate [orthos tatic standing] Respiratory Rate Blood Pressure 127/62 Blood Pressure [Ri ght Upper Arm] Blood Pressure [or thostatic lying] Blood Pressure [or thostatic sitting] Blood Pressure [or thostatic standing ] Pulse Oximetry 94 93 97 Oxygen Delivery Me thod 07/20/25 17:17 07/20/25 17:30 07/20/25 17:32 Temperature Pulse Rate 72 72 76 Pulse Rate [Pulse Oximeter] Pulse Rate [orthos tatic lying] Pulse Rate [orthos tatic sitting] Pulse Rate [orthos tatic standing] Respiratory Rate Blood Pressure 127/74 133/77 Blood Pressure [Ri ght Upper Arm] Blood Pressure [or thostatic lying] Blood Pressure [or thostatic sitting] Blood Pressure [or thostatic standing ] Pulse Oximetry 93 95 96 Oxygen Delivery Me thod 07/20/25 17:33 07/20/25 17:45 07/20/25 17:48 Temperature Pulse Rate 75 74 Pulse Rate [Pulse Oximeter] Pulse Rate [orthos tatic lying] Pulse Rate [orthos tatic sitting] Pulse Rate [orthos tatic standing] Respiratory Rate Blood Pressure 118/75 Blood Pressure [Ri ght Upper Arm] Blood Pressure [or thostatic lying] Blood Pressure [or thostatic sitting] Blood Pressure [or thostatic standing ] Pulse Oximetry 95 90 Oxygen Delivery Me thod 07/20/25 17:49 07/20/25 19:33 07/20/25 19:34 Temperature Pulse Rate 74 74 Pulse Rate [Pulse Oximeter] Pulse Rate [orthos tatic lying] Pulse Rate [orthos tatic sitting] Pulse Rate [orthos tatic standing] Respiratory Rate Blood Pressure 117/62 Blood Pressure [Ri ght Upper Arm] Blood Pressure [or thostatic lying] Blood Pressure [or thostatic sitting] Blood Pressure [or thostatic standing ] Pulse Oximetry 95 96 Oxygen Delivery Me thod Course Vital Signs Vital signs: Initial Vital Signs Temperature 97.5 F L 07/20/25 14:10 Temperature Source Temporal Artery Scan 07/20/25 14:10 Pulse Rate 72 07/20/25 14:10 Respiratory Rate 16 07/20/25 14:10 Blood Pressure 121/51 L 07/20/25 14:10 Blood Pressure Mean 74 07/20/25 14:10 Pulse Oximetry 96 07/20/25 14:10 Oxygen Delivery Method Room Air 07/20/25 14:10 Vital Signs Temperature 97.5 F L 07/20/25 14:10 Pulse Rate 72 07/20/25 14:10 Respiratory Rate 16 07/20/25 14:10 Blood Pressure 121/51 L 07/20/25 14:10 Pulse Oximetry 96 07/20/25 14:10 Oxygen Delivery Method Room Air 07/20/25 14:10 Temperature 97.5 F L 07/20/25 14:10 Pulse Rate 74 07/20/25 19:33 Respiratory Rate 16 07/20/25 14:10 Blood Pressure 117/62 07/20/25 19:34 Pulse Oximetry 96 07/20/25 19:33 Oxygen Delivery Method Room Air 07/20/25 14:10 Medications Administered Medications: Discontinued Medications Generic Name Dose Route Start Last Admin Trade Name Freq PRN Reason Stop Dose Admin Aspirin 81 mg 07/20/25 18:26 07/20/25 19:03 Aspirin 81 Mg Tab.Chew PO 07/20/25 18:27 81 mg ONCE ONE Administration Lactated Ringer's 1,000 mls @ 1,000 mls/hr 07/20/25 14:50 07/20/25 16:55 Lactated Ringers 1000 Ml IV 07/20/25 15:49 Infused .Q1H ONE Infusion Lactated Ringer's 1,000 mls @ 1,000 mls/hr 07/20/25 16:54 07/20/25 17:40 Lactated Ringers 1000 Ml IV 07/20/25 17:53 Infused .Q1H ONE Infusion Metoclopramide HCl 10 mg 07/20/25 14:46 07/20/25 14:59 Metoclopramide Hcl 5 Mg/Ml Inj IVP 07/20/25 14:47 10 mg ONCE ONE Administration Ondansetron HCl 4 mg 07/20/25 16:11 07/20/25 16:15 Ondansetron 2 Mg/Ml Inj IVP 07/20/25 16:12 4 mg ONCE ONE Administration Medical Decision Making MDM Narrative Medical decision making narrative: Patient is an 80-year-old female presenting to emergency department for both dizziness and lightheadedness. Her initial concern was dizziness since seen the remove like it was spinning whenever she moves her head or body. Symptoms go away when she lays down. She also states she was feeling very lightheaded when she was walking into the emergency department and is and to insert the bed. The differential diagnosis of vertigo is broad and includes common etiologies such as menieres disease, labyrinthitis, benign positional vertigo, otitis media, etc. More serious etiologies considered include central etiologies such as tumor, intracerebral bleed, dissection, ischemic cerebral vascular accident. With no hearing changes, tinnitus, recent viral illnesses labyrinthitis, vestibular neuritis, Meniere's disease seem less likely. She is having improved symptoms at rest so seems less likely to be a central cause but I will also do a CT and CTA to help look for any signs of a stroke. Unable to do an MRI due to the patient's pacemaker but again symptoms are more consistent with a peripheral cause. The lightheadedness may be related her vertigo. Will check EKG, troponin, CBC, BMP, blood sugar, magnesium. Will also give her a L of fluids. Regular given for her nausea. PT came to evaluate her for vertigo but she is not currently having any more vertigo. They ambulated her around the department without issue. She did start developing some nausea again. Zofran was ordered. After the Zofran she was feeling much better. Results of her CT scan returned reviewed by myself and the radiologist. CT scan of the head showed no acute concerning abnormalities. CTA of head and neck showed an area of absent perfusion in the distal right vertebral artery. Unsure if this is new or old. Radiology states this would be better evaluated with an MRI. After the Zofran patient is no longer feeling nauseated. We tried to ambulate her again and she was only able to get a few feet before she got very lightheaded and felt like she was going to pass out again. She denies any associated dizziness this time. She again became very nauseated and was laid down in bed. After she was resting in bed we did check orthostatic blood pressures which were unremarkable. Another L of fluid was given. Patient again was ambulated after the 2 L of fluids and again became very lightheaded and she did appear like she was about to fall staff helped her back to her room. At this time I do not believe she is safe for discharge as she does appear to be a very high fall risk. She does have a pacemaker and defibrillator that was placed several years ago down in [place]. Does not see cardiology in [place] currently. Has been living here for 2.5 years. She states he was home placed in 2021 for heart failure. Of note on this point she has received 2 L of fluid and the initial L did appear to help her with her symptoms. I do not see any signs of fluid overload at this time. She states she has not had an echocardiogram since arriving in [place]. Based on the results of the CTA I did speak to the on-call neurologist for [place], Dr. Sahu. Based on the absence of perfusion in the right vertebral artery he does believe the patient should get an MRI. This will have to be done at and is directed a larger hospitals as we do not have cardiology here and thus cannot do an MRI with her pacemaker. [facility] does not have any beds available. I spoke to [facility] and Dr. Hendrix accepted her for transfer. Lab Data Labs: Lab Results 07/20/25 07/20/25 Range/Units 14:38 14:45 WBC 6.32 (4.50-11.00) K/uL RBC 3.99 L (4.00-5.20) m/uL Hgb 12.3 (12.0-16.0) gm/dL Hct 36.7 (33.0-51.0) % MCV 92 (80-100) fL MCH 31 (26-34) pg MCHC 34 (32-36) gm/dL RDW Coeff of Joe 12.6 (11.5-15.5) % Plt Count 180 (140-440) K/uL Neut % (Auto) 81.9 H (42.0-72.0) % Lymph % (Auto) 9.8 L (20-44) % Murray % (Auto) 6.0 (0.0-11.0) % Eos % (Auto) 1.1 (0.0-7.0) % Baso % (Auto) 0.3 (0.0-3.0) % Neut # (Auto) 5.20 (1.7-7.0) K/uL Lymph # (Auto) 0.60 L (0.90-2.90) K/uL Murray # (Auto) 0.40 (0.00-0.90) K/UL Eos # (Auto) 0.07 (0.00-0.50) K/uL Baso # (Auto) 0.02 (0.00-0.30) K/uL Abs Immat Gran (auto) 0.06 (0.00-0.30) K/uL Imm/Tot Granulo (auto) 0.9 % Sodium 131 L (135-149) mmol/L Potassium 4.3 (3.6-5.1) mmol/L Chloride 102 (96-114) mmol/L Carbon Dioxide 22 (20-32) mmol/L Anion Gap 7 (7-15) mEq/L BUN 25 (7-30) mg/dL Creatinine 0.9 (0.5-1.5) mg/dL Estimated GFR 64 ml/min Glucose 271 H (60-115) mg/dL Calcium 9.8 (8.4-10.6) mg/dL Magnesium 1.5 (1.5-2.6) mg/dL Troponin I < 0.01 (0.01-0.04) ng/mL POC Glucose 276 H (60-115) mg/dl Imaging Data CT scan head: Attestation: I have reviewed the pertinent imaging results. Radiologist's impression: Age-related and chronic small-vessel disease changes of the brain without acute intracranial abnormality. Please note that all CT scans at this facility use dose modulation, iterative reconstruction, and/or weight-based dosing when appropriate to reduce radiation dose to as low as reasonably achievable. Dictated by Sabino Leal MD @ 07/20/2025 4:13:00 PM CTA neck: Attestation: I have reviewed the pertinent imaging results. Radiologist's impression: Preliminary Report: The thoracic aorta is nonaneurysmal. The common carotid arteries are patent. The carotid bifurcations demonstrate no significant atherosclerotic plaque or narrowing according to the NASCET criteria. The distal internal carotid arteries are patent. There is a dominant left and primarily hypoplastic right vertebral artery. The partially visualized lung apices demonstrate mild interstitial prominence which may represent trace pulmonary vascular congestion. Dictated by Sabino Leal MD @ 07/20/2025 4:22:19 PM CTA head: Attestation: I have reviewed the pertinent imaging results. Radiologist's impression: Preliminary Report: The skull base internal carotid arteries are patent. Patent anterior cerebral arteries. Patent middle cerebral arteries. There is a dominant left and primarily hypoplastic right vertebral artery appreciated. There is demonstration of absent perfusion of the diminutive appearing distal right vertebral artery after the dural perforation and just before the vertebrobasilar junction which may represent age-indeterminate atherosclerotic occlusion. There is reconstitution of flow within the overall diminutive basilar artery. Patent distal left vertebral artery. Consider additional follow-up with MR of the brain if there is concern for potential embolic phenomena within the posterior fossa. Findings were discussed with Anthony at 4:15 p.m. July 20, 2025 Dictated by Sabino Leal MD @ 07/20/2025 4:21:02 PM ECG Data Attestation: I personally reviewed and interpreted this ECG as follows: Prior ECG tracings: not available for review Interpretation: Normal sinus rhythm with rate of 71 beats per minute, normal intervals, normal axis, no ST abnormalities. There are some mild T-wave flattening in the anterior and inferior leads. Discharge Plan Discharge Clinical Impression: Dizziness, Lightheadedness CHF (congestive heart failure) Qualifiers: Heart failure type: unspecified Heart failure chronicity: unspecified Qualified Code(s): I50.9 - Heart failure, unspecified Patient Disposition: [facility] Discharge Location: [facility] Condition: Stable
[2025-07-20 14:54] LABS: Glucose, Point-of-Care* 276 mg/dl (60-115)
[2025-07-20] MEDS: LACTATED RINGERS 1000 ML 1,000 ML IV ×2 (14:58→17:00)
[2025-07-20] MEDS: METOCLOPRAMIDE HCL 5 MG/ML INJ 10 MG IVP (14:59)
[2025-07-20 15:05] LABS: Hematocrit* 36.7 % (33.0-51.0); Hemoglobin* 12.3 gm/dL (12.0-16.0); Immature Granulocytes Abs Auto 0.06 K/uL (0.00-0.30); Immature Granulocytes Pct Auto 0.9 %; Mean Corpuscular HGB Conc 34 gm/dL (32-36); Mean Corpuscular Hemoglobin 31 pg (26-34); Mean Corpuscular Volume 92 fL (80-100); RDW Coefficient of Variation % 12.6 % (11.5-15.5); Red Blood Count* 3.99 m/uL (4.00-5.20); White Blood Count* 6.32 K/uL (4.50-11.00)
[2025-07-20 15:11] LABS: Lymphocytes Absolute Auto 0.60 K/uL (0.90-2.90); Slide Review Reflex No
[2025-07-20 15:26] LABS: Chloride* 102 mmol/L (96-114); Potassium* 4.3 mmol/L (3.6-5.1); Sodium* 131 mmol/L (135-149)
[2025-07-20 15:29] LABS: Anion Gap 7 mEq/L (7-15); Blood Urea Nitrogen* 25 mg/dL (7-30); Calcium* 9.8 mg/dL (8.4-10.6); Carbon Dioxide* 22 mmol/L (20-32); Creatinine* 0.9 mg/dL (0.5-1.5); Estimated Glomerular Filt Rate 64 ml/min; Glucose* 271 mg/dL (60-115)
[2025-07-20] MEDS: ONDANSETRON 2 MG/ML inj 4 MG IVP (16:15)
--- NOTE | 2025-07-20 16:17 | REH.PT ---
Pt assessed for BPPV at the request of MD. - Tabatha Hallpike test Bilaterally. Pt with mild nausea with all position changes. No ocular nystagmus trigged with positional changes. Rule out BPPV.
[2025-07-20] MEDS: ASPIRIN 81 MG TAB.CHEW PO (19:03)
== END 2025-07-20 19:59 | disposition short-term general hospital (02) ==
PROVIDERS: Emergency Provider Student in an Organized Health Care Education/Training Program; PCP Family Medicine
DX: I50.9 Heart failure, unspecified (principal); R42 Dizziness and giddiness
CPT/HCPCS: 36415; 70450; 70496; 70498; 80048; 82565; 82947; 83735; 84484; 85025; 93005; 96361; 96374; 96375; 99285; A9270; J2405; J2765; J7120; Q9967

== ENCOUNTER 2025-07-20 19:47 | Outpatient (CLI) | payer MEDICARE, OTHER, SELFPAY | END 2025-07-20 19:48 | disposition home or self-care (01) | LOC: AMB 07-23 00:17 | PROVIDERS: PCP Family Medicine; Visit Provider Internal Medicine | DX: R42 Dizziness and giddiness (principal); I50.9 Heart failure, unspecified | CPT/HCPCS: A0425; A0427 ==